=== PATIENT | female | born 1995 | race Caucasian/White ===

== ENCOUNTER 2018-05-31 01:55 | Emergency (ER) | payer BC ==
[~2018-05-31] VITALS: Ht 162.6 cm; Wt 61.4 kg
[2018-05-31 02:01] VITALS: BP 123/85; PULSE 95; TEMP 98.1
== END 2018-05-31 02:35 | disposition home or self-care (01) ==
LOC: COL.ER 01:55
DX: F10.129 Alcohol abuse with intoxication, unspecified (principal); Y90.6 Blood alcohol level of 120-199 mg/100 ml; Z98.890 Other specified postprocedural states

== ENCOUNTER → 2018-05-31 | Outpatient (CLI) | payer BC | LOC: COL.LAB 01:38 | DX: Z53.8 Procedure and treatment not carried out for other reasons (principal) ==

== ENCOUNTER 2019-05-30 09:04 | Emergency (ER) | payer BC ==
[~2019-05-30] VITALS: Ht 152.4 cm; Wt 63.6 kg
[2019-05-30 09:52] LABS: HEMOGLOBIN 12.9 g/dl (12.5-16.0); MEAN CELL VOLUME 91 fl (80.0-100.0); MEAN CORPUSCULAR HEMOGLOBIN 31 pg (27.0-31.0); MEAN CORPUSCULAR HGB CONC 34 g/dl (33.0-37.0); MEAN PLATELET VOLUME 10.4 fl (7.4-10.4); PLATELET COUNT 234 K/mm3 (130-400); RED BLOOD COUNT 4.16 M/mm3 (4.10-5.30); REDCELL DISTRIBUTION WIDTH-CV 12.4 % (11.5-14.5)
[2019-05-30 10:03] LABS: ALANINE AMINOTRANSFERASE < 6 U/L (9-52); ALKALINE PHOSPHATASE 75 U/L (50-136); ANION GAP 13 mmol/L (7-16); AST,SGOT 30 U/L (15-37); BILIRUBIN,TOTAL 0.4 mg/dL (0.0-1.0); BLOOD UREA NITROGEN 7 mg/dL (7-17); CALCIUM 8.5 mg/dL (8.4-10.2); CARBON DIOXIDE 21 mmol/L (22-30); CHLORIDE 102 mmol/L (98-107); CREATININE, serum 0.62 (0.52-1.25); GLUCOSE 129 mg/dL (74-106); POTASSIUM 3.7 mmol/L (3.4-5.0); SODIUM 136 mmol/L (137-145); TOTAL PROTEIN 7.7 gm/dL (6.4-8.2)
[2019-05-30 10:08] LABS: STREP SCREEN NEGATIVE
[2019-05-30 10:15] LABS: COLLECTION METHOD CLEAN CATCH
[2019-05-30 10:15] LABS: BAND 5 % (0-10); BASOPHIL 1 % (0-2); LYMPHOCYTE 5 % (20.0-51.0); NEUTROPHILS 84 % (42.0-75.2); PLATELET ESTIMATE NORMAL (NORMAL)
[2019-05-30 10:26] LABS: MUCOUS Present /lpf; PH 5 (5-8); SQUAMOUS EPITHELIAL 0-2 /hpf; URINE APPEARANCE Hazy; URINE BACTERIA Rare /hpf; URINE BILIRUBIN Negative (NEGATIVE); URINE BLOOD Negative (NEGATIVE); URINE COLOR Yellow; URINE GLUCOSE Negative (NEGATIVE); URINE KETONE Negative (NEGATIVE); URINE LEUKOCYTE ESTERASE 2+ (NEGATIVE); URINE NITRATE Negative (NEGATIVE); URINE PROTEIN(semi-quant) 1+ (NEGATIVE); URINE UROBILINOGEN Negative (NEGATIVE)
[2019-05-30] MEDS ORDERED: OMNICEF 300MG300 MG PO (10:34)
[2019-05-30] MEDS ORDERED: ZOFRAN ODT8 MG PO (10:34)
[2019-05-30 11:52] VITALS: BP 104/68; PULSE 78; TEMP 98.5
== END 2019-05-30 11:52 | disposition home or self-care (01) ==
LOC: COL.ER 09:04
PROVIDERS: Emergency Medicine
DX: N12 Tubulo-interstitial nephritis, not specified as acute or chronic (principal); F17.290 Nicotine dependence, other tobacco product, uncomplicated
CPT/HCPCS: A4216; J0696; J1885; J2405; J7030